=== PATIENT | male | born 1955 | race Two or more races ===

== ENCOUNTER → 2019-04-28 | Emergency (ER) | payer OTHER ==
[~2019-04-28] VITALS: Ht 170.2 cm; Wt 104.3 kg
[~2019-04-28] MED LIST: AVALIDE 300-121 EACH; CARDURA8 MG; NORVASC5 MG
== END | disposition home or self-care (01) ==
LOC: ER 19:41
DX: S61.021A Laceration with foreign body of right thumb without damage to nail, initial encounter (principal); W26.8XXA Contact with other sharp object(s), not elsewhere classified, initial encounter; Y93.89 Activity, other specified; Y92.22 Religious institution as the place of occurrence of the external cause; Y99.8 Other external cause status

== ENCOUNTER 2020-09-27 19:38 | Inpatient (IN) | payer OTHER ==
[~2020-09-27] VITALS: Ht 170.2 cm; Wt 97.5 kg
[2020-09-28] MEDS ORDERED: MONTELUKAST SOD10 MG (15:32)
== END 2020-10-01 18:02 | disposition home or self-care (01) | DRG 690 ==
LOC: ER 19:38 → MEDI 09-28 14:50
PROVIDERS: ADMIT Internal Medicine; ATTEND Internal Medicine
PROC: BW21ZZZ Computerized Tomography (CT Scan) of Abdomen and Pelvis (ICD-10-PCS; principal; 2020-09-28)
DX: N39.0 Urinary tract infection, site not specified (principal); N41.0 Acute prostatitis; N40.1 Benign prostatic hyperplasia with lower urinary tract symptoms; R39.11 Hesitancy of micturition; M54.9 Dorsalgia, unspecified; I10 Essential (primary) hypertension; Z20.822 Contact with and (suspected) exposure to COVID-19

== ENCOUNTER 2024-09-09 15:40 | Emergency (ER) | payer OTHER ==
[~2024-09-09] VITALS: Ht 170.2 cm; Wt 101.6 kg
[~2024-09-09 15:40] MED LIST changes: +MONTELUKAST SOD10 MG
[2024-09-09] MEDS ORDERED: ACETAMINOPHEN 500 MG GEL..CAP PO ONE (20:17)
[2024-09-09 20:28] LABS: HEMATOCRIT 39.8 % (39.0-48.0); HEMOGLOBIN 13.8 g/dL (13-16.00); MEAN CELL VOLUME 91.5 fL (80.0-100.00); MEAN CORPUSCULAR HEMOGLOBIN 31.8 pg (27.00-32.0); MEAN CORPUSCULAR HGB CONC 34.7 g/dl (32.0-36.0); PLATELET COUNT 233 K/uL (150-450); RED BLOOD COUNT 4.35 M/uL (4.00-6.00); RED CELL DISTRIBUTION WIDTH 12.4 % (11.5-14.5)
[2024-09-09 20:51] LABS: ALBUMIN 3.8 gm/dL (3.4-5.0); BILIRUBIN TOTAL 1.18 mg/dL (0.3-1.2); CALCIUM 9.1 mg/dL (8.5-10.1); CREATININE SERUM 1.05 mg/dL (0.70-1.30); GFR 70.67; POTASSIUM 3.96 mEq/L (3.5-5.1); TOTAL PROTEIN 7.8 gm/dL (6.4-8.2)
[2024-09-09 22:00] LABS: PH,URINE 6.5 (5.0-8.0); URINE APPEARANCE Clear; URINE BILIRRUBIN Negative (NEGATIVE); URINE BLOOD Small; URINE COLOR Yellow; URINE GLUCOSE Negative (NEGATIVE); URINE KETONE Negative (NEGATIVE); URINE LEUKOCYTE Moderate; URINE NITRATE Negative
[2024-09-09 22:04] LABS: URINE BACTERIA 4099.9 uL (0.0-1933); URINE EPITHELIAL CELLS 5.6 uL (0.0-38.8); URINE RBC 19.8 uL (0.0-20.8); URINE WBC 364.1 uL (0.0-23.2)
[2024-09-09 22:20] LABS: URINE CAST 0.14 uL (0.0-1.40); URINE PROTEIN 100 (NEGATIVE)
[2024-09-09] MEDS ORDERED: CEFTRIAXONE SODIUM 1,000 MG VIAL ONE (22:49)
[2024-09-09] MEDS ORDERED: LIDOCAINE HCL 1% 10ML VIAL ONE (22:50)
[2024-09-09] MEDS ORDERED: BACTRIM DS TAB1 EACH PO (22:51)
[2024-09-09] MEDS ORDERED: PYRIDIUM200 MG PO (22:51)
[2024-09-09] MEDS ORDERED: CEFTRIAXONE SODIUM 1,000 MG VIAL IM ONE (23:00)
== END 2024-09-09 22:57 | disposition home or self-care (01) ==
LOC: ER 15:43
PROVIDERS: Preventive Medicine Public Health & General Preventive Medicine
DX: R53.81 Other malaise (principal); N39.0 Urinary tract infection, site not specified; Z20.822 Contact with and (suspected) exposure to COVID-19; I10 Essential (primary) hypertension
CPT/HCPCS: 36415; 96372; 99282; J0696